=== PATIENT | female | born 1935 | race Caucasian/White ===

== ENCOUNTER 2017-12-14 14:07 | Emergency (ER) | payer MEDICARE, OTHER ==
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
--- NOTE | 2017-12-14 15:32 | RADIOLOGY REPORT (SQ) ---
EXAM DESCRIPTION: TIBIA FIBULA LEFT COMPLETED DATE/TIME: 12/14/2017 3:21 pm REASON FOR STUDY: fall, left leg injury COMPARISON: None. NUMBER OF VIEWS: Two views. TECHNIQUE: Two radiographic images acquired of the left tibia and fibula to include the knee and ank le in at least one projection. LIMITATIONS: None. FINDINGS: MINERALIZATION: Normal. BONES: No acute fracture or dislocation. No worrisome bone lesions. SOFT TISSUES: No obvious swelling or foreign body. OTHER: No other significant finding. IMPRESSION: NEGATIVE STUDY OF THE LEFT TIBIA AND FIBULA. NO RADIOGRAPHIC EVIDENCE OF ACUTE INJURY. TECHNICAL DOCUMENTATION: JOB ID: [id number] [employer]- All Rights Reserved Reading location - IP/workstation name: [email or web address]
[2017-12-14 15:54] LABS: APPEARANCE,URINE CLOUDY; BILIRUBIN,URINE NEGATIVE (NEGATIVE); GLUCOSE, URINE NEGATIVE (NEGATIVE); KETONES,URINE NEGATIVE (NEGATIVE); LEUKOCYTE ESTERASE,URINE NEGATIVE (NEGATIVE); NITRITE,URINE NEGATIVE (NEGATIVE); PROTEIN,URINE NEGATIVE (NEGATIVE); URINE SPECIFIC GRAVITY 1.027
[2017-12-14 15:55] LABS: COLOR,URINE YELLOW
[2017-12-14] MEDS ORDERED: CEPHALEXIN 500 MG CAPSULE PO ONE (15:55)
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
[2017-12-14 16:13] VITALS: BP 138/69
== END 2017-12-14 16:13 | disposition home or self-care (01) ==
LOC: ER 14:07
DX: L03.116 Cellulitis of left lower limb (principal); M79.662 Pain in left lower leg; E78.00 Pure hypercholesterolemia, unspecified; I10 Essential (primary) hypertension
CPT/HCPCS: 99283; 81001; 73590; A9270

== ENCOUNTER 2018-09-30 14:03 | Emergency (ER) | payer OTHER, MEDICARE ==
[2018-09-30 14:24] LABS: ABSOLUTE EOSINOPHILS # (AUTO) 0.1 10^3/uL (0.0-0.6); ABSOLUTE LYMPHOCYTES (AUTO) 1.5 10^3/uL (0.5-4.7); ABSOLUTE MONOCYTES (AUTO) 0.7 10^3/uL (0.1-1.4); ABSOLUTE NEUT (AUTO) 3.2 10^3/uL (1.7-8.2); BASOPHILS % (AUTO) 0.5 % (0-2); EOSINOPHILS % (AUTO) 1.6 % (0-6); HEMATOCRIT 39.1 % (36.0-47.0); HEMOGLOBIN 13.5 g/dL (12.0-15.5); MEAN CORPUSCULAR HEMOGLOBIN 29.5 pg (27.0-33.4); MEAN CORPUSCULAR HGB CONC 34.5 g/dL (32.0-36.0); MEAN CORPUSCULAR VOLUME 86 fl (80-97); MONOCYTES % (AUTO) 12.2 % (3-13); PLATELET COUNT 176 10^3/uL (150-450); RED BLOOD COUNT 4.57 10^6/uL (3.72-5.28); RED CELL DISTRIBUTION WIDTH 12.3 % (11.5-14.0); SEGMENTED NEUTROPHILS % (AUTO) 58.7 % (42-78); TOTAL CELLS COUNTED % (AUTO) 100 %; WHITE BLOOD COUNT 5.4 10^3/uL (4.0-10.5)
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
[2018-09-30 14:41] LABS: ALANINE AMINOTRANSFERASE 24 U/L (9-52); ALBUMIN 3.7 g/dL (3.5-5.0); ALKALINE PHOSPHATASE 48 U/L (38-126); ANION GAP 5 (5-19); ASPARTATE AMINO TRANSFERASE 30 U/L (14-36); BILIRUBIN,DIRECT 0.2 mg/dL (0.0-0.4); BILIRUBIN,TOTAL 0.4 mg/dL (0.2-1.3); BLOOD UREA NITROGEN 18 mg/dL (7-20); CALCIUM 9.4 mg/dL (8.4-10.2); CARBON DIOXIDE 31 mmol/L (22-30); CHLORIDE 104 mmol/L (98-107); GLUCOSE 136 mg/dL (75-110); POTASSIUM 4.1 mmol/L (3.6-5.0); SODIUM 140.4 mmol/L (137-145); TOTAL PROTEIN 6.1 g/dL (6.3-8.2)
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
[2018-09-30 15:57] LABS: CREATINE KINASE MB 2.06 ng/mL (<4.55)
[2018-09-30 16:00] LABS: TROPONIN I 0.022 ng/mL
[2018-09-30 16:30] VITALS: BP 138/98
--- NOTE | 2018-10-01 08:10 | EKG REPORT ---
SEVERITY:- ABNORMAL ECG - JUNCTIONAL ESCAPE RHYTHM ,COMPLETE HEART BLOCK RIGHT BUNDLE BRANCH BLOCK LVH WITH IVCD AND SECONDARY REPOL ABNRM : Confirmed by: Hussain Heredia MD 01-Oct-2018 08:09:33
== END 2018-09-30 15:40 | disposition short-term general hospital (02) ==
LOC: ER 14:03
DX: S20.219A Contusion of unspecified front wall of thorax, initial encounter (principal); R07.9 Chest pain, unspecified; R42 Dizziness and giddiness; M54.2 Cervicalgia; R00.1 Bradycardia, unspecified; R10.9 Unspecified abdominal pain; V42.5XXA Car driver injured in collision with two- or three-wheeled motor vehicle in traffic accident, initial encounter; E78.00 Pure hypercholesterolemia, unspecified; I10 Essential (primary) hypertension
CPT/HCPCS: 36415; 70450; 71045; 71260; 72125; 74177; 80053; 82550; 82553; 82962; 83690; 84484; 85025; 93005; 93010; 99291

== ENCOUNTER 2019-01-07 19:22 | Emergency (ER) | payer MEDICARE, OTHER ==
[2019-01-07] MEDS ORDERED: NORMAL SALINE 1000 ML 1,000 ML IV ONE (22:29)
[2019-01-07] MEDS ORDERED: MORPHINE SULFATE 10 MG/ML INJ IV ONE (22:29)
[2019-01-07] MEDS ORDERED: ONDANSETRON HCL INJ/PF 4 MG/2 ML SDV IV ONE (22:30)
--- NOTE | 2019-01-07 22:31 | ER Document Report ---
ED GI/ - General Chief Complaint: Abdominal Pain Stated Complaint: ABDOMINAL PAIN Time Seen by Provider: 01/07/19 22:21 Primary Care Provider: PALOMA APPLE MD [ACTIVE STAFF] - 01/14/19 Notes: Patient is an 83-year-old female that comes to the emergency department for chief complaint of lower abdominal pain. Pain started in the early afternoon, she states pain is sharp, intermittently very sharp, has made her nauseated but she has not vomited. She denies fever/chills. She had a bowel movement yesterday that was slightly harder than normal, she denies hematochezia. She denies any abdominal surgery history. She cannot recall a colonoscopy history either. Past medical history of AICD placement, she is on lisinopril, treated for hypothyroidism, denies any medical history otherwise. Daughter at bedside. TRAVEL OUTSIDE OF THE [place] IN LAST 30 DAYS: No - Related Data Allergies/Adverse Reactions: No Known Allergies Allergy (Verified 12/14/17 14:56) Past Medical History - General Information source: Patient, Relative - Social History Smoking Status: Never Smoker Frequency of alcohol use: None Lives with: Family Family History: None - Past Medical History Cardiac Medical History: Reports: Hx Hypercholesterolemia, Hx Hypertension Renal/ Medical History: Denies: Hx Peritoneal Dialysis - Immunizations Immunizations up to date: Yes Hx Diphtheria, Pertussis, Tetanus Vaccination: Yes Review of Systems - Review of Systems Constitutional: No symptoms reported EENT: No symptoms reported Cardiovascular: No symptoms reported Respiratory: No symptoms reported Gastrointestinal: See HPI Genitourinary: No symptoms reported Female Genitourinary: No symptoms reported Musculoskeletal: No symptoms reported Skin: No symptoms reported Hematologic/Lymphatic: No symptoms reported Neurological/Psychological: No symptoms reported Physical Exam - Vital signs Vitals: Temp Pulse Resp BP Pulse Ox 98.6 F 69 18 164/56 H 97 01/07/19 19:54 01/07/19 19:54 01/07/19 19:54 01/07/19 19:54 01/07/19 19:54 - Notes Notes: GENERAL: Alert, interacts well. No acute distress. HEAD: Normocephalic, atraumatic. EYES: Pupils equal, round, and reactive to light. Extraocular movements intact. ENT: Oral mucosa moist, tongue midline. Oropharynx unremarkable. Airway patent. NECK: Full range of motion. Supple. Trachea midline. LUNGS: Clear to auscultation bilaterally, no wheezes, rales, or rhonchi. No respiratory distress. HEART: Regular rate and rhythm. No murmur ABDOMEN: Bilateral lower abdominal tenderness, no guarding, no rigidity, no rebound tenderness. Non-distended. Bowel sounds present in all 4 quadrants. GENITOURINARY: Deferred EXTREMITIES: Moves all 4 extremities spontaneously. No edema, normal radial and dorsalis pedis pulses bilaterally. No cyanosis. BACK: no cervical, thoracic, lumbar midline tenderness. No saddle anesthesia, normal distal neurovascular exam. NEUROLOGICAL: Alert and oriented x3. Normal speech. . PSYCH: Normal affect, normal mood. SKIN: Warm, dry, normal turgor. No rashes or lesions noted. Course - Re-evaluation Re-evalutation: Patient with generalized lower abdominal tenderness on evaluation, no guarding or rebound tenderness. She is not ill-appearing. Vital signs unremarkable. C BC shows mild leukocytosis at 11,000, chemistry, urinalysis unremarkable. Because of patient's age and abdominal tenderness on exam CAT scan of the was performed, this shows area of possible mass versus abscess versus cyst in the pelvic area. Discussed with patient and daughter, ultrasound was performed, this shows what appears to be complex cystic mass of the left ovary at 11 cm in size. Good blood flow to the ovary is maintained as demonstrated on ultrasound. 01/08/19 04:[address] Apple, [employer] supervisor. She recommends Ca125, CA 199, and CEA testing now, follow-up approximately Saturday so there will be enough time for the test to complete, she can complete her imaging and additional management at that time. She should be provided with pain medication and return precau tions. I discussed this with patient, she states satisfaction and agreement with plan. - Vital Signs Vital signs: Temp Pulse Resp BP Pulse Ox 98.4 F 68 19 159/58 H 100 01/08/19 05:53 01/08/19 05:53 01/08/19 05:53 01/08/19 05:53 01/08/19 05:53 - Laboratory Result Diagrams: 01/07/19 23:08 01/07/19 23:08 Laboratory results interpreted by me: 01/07/19 01/07/19 01/07/19 23:08 23:08 23:08 WBC 11.6 H Plt Count 131 L Seg Neutrophils % 89.1 H Lymphocytes % 5.3 L Absolute Neutrophils 10.3 H BUN 21 H Glucose 132 H Urine Ketones TRACE H Discharge - Discharge Clinical Impression: Lower abdominal pain, Ovarian mass, left Condition: Stable Disposition: HOME, SELF-CARE Additional Instructions: You have an 11 cm cystic mass on the left ovary according to the imaging. This is most likely the cause of your symptoms. I spoke with Dr. Apple, [employer] [facility] about your testing/work-up. Take the pain medication as prescribed if needed, if you do take this pain medication also take the Colace stool softener to avoid constipation. The blood tests we are running now take some time to result, because of this the follow-up recommendation by Dr. Apple is to be seen in the office approximately on Saturday, call tomorrow to set up this appointment. Return if you worsen including severe pain, fever, vomiting, or any other concerning or worsening symptoms. Prescriptions: Docusate Sodium [Colace 100 mg Capsule] 100 mg PO ASDIR PRN #30 capsule PRN Reason: Hydrocodone/Acetaminophen [Gustine 5-325 mg Tablet] 0.5 - 1 tab PO ASDIR #15 tablet Referrals: PALOMA APPLE MD [ACTIVE STAFF] - 01/14/19
[2019-01-07 23:31] LABS: ABSOLUTE LYMPHOCYTES (AUTO) 0.6 10^3/uL (0.5-4.7); ABSOLUTE MONOCYTES (AUTO) 0.6 10^3/uL (0.1-1.4); ABSOLUTE NEUT (AUTO) 10.3 10^3/uL (1.7-8.2); BASOPHILS % (AUTO) 0.1 % (0-2); EOSINOPHILS % (AUTO) 0.1 % (0-6); HEMATOCRIT 40.6 % (36.0-47.0); HEMOGLOBIN 13.7 g/dL (12.0-15.5); LYMPHOCYTES % (AUTO) 5.3 % (13-45); MEAN CORPUSCULAR HEMOGLOBIN 28.5 pg (27.0-33.4); MEAN CORPUSCULAR HGB CONC 33.8 g/dL (32.0-36.0); MEAN CORPUSCULAR VOLUME 84 fl (80-97); MONOCYTES % (AUTO) 5.4 % (3-13); PLATELET COUNT 131 10^3/uL (150-450); RED BLOOD COUNT 4.82 10^6/uL (3.72-5.28); RED CELL DISTRIBUTION WIDTH 13.5 % (11.5-14.0); SEGMENTED NEUTROPHILS % (AUTO) 89.1 % (42-78); TOTAL CELLS COUNTED % (AUTO) 100 %; WHITE BLOOD COUNT 11.6 10^3/uL (4.0-10.5)
[2019-01-07 23:40] LABS: APPEARANCE,URINE SLIGHTLY-CLOUDY; BILIRUBIN,URINE NEGATIVE (NEGATIVE); COLOR,URINE YELLOW; GLUCOSE, URINE NEGATIVE (NEGATIVE); KETONES,URINE TRACE mg/dL (NEGATIVE); LEUKOCYTE ESTERASE,URINE NEGATIVE (NEGATIVE); NITRITE,URINE NEGATIVE (NEGATIVE); PROTEIN,URINE NEGATIVE (NEGATIVE); URINE SPECIFIC GRAVITY 1.023; UROBILINOGEN,URINE NEGATIVE mg/dL (<2.0)
[2019-01-07 23:50] LABS: ALANINE AMINOTRANSFERASE 32 U/L (9-52); ALBUMIN 3.8 g/dL (3.5-5.0); ALKALINE PHOSPHATASE 50 U/L (38-126); ANION GAP 8 (5-19); ASPARTATE AMINO TRANSFERASE 30 U/L (14-36); BILIRUBIN,DIRECT 0.3 mg/dL (0.0-0.4); BILIRUBIN,TOTAL 0.6 mg/dL (0.2-1.3); BLOOD UREA NITROGEN 21 mg/dL (7-20); CALCIUM 9.9 mg/dL (8.4-10.2); CARBON DIOXIDE 28 mmol/L (22-30); CHLORIDE 105 mmol/L (98-107); GLUCOSE 132 mg/dL (75-110); SODIUM 141.3 mmol/L (137-145); TOTAL PROTEIN 6.7 g/dL (6.3-8.2)
--- NOTE | 2019-01-08 01:52 | RADIOLOGY REPORT (SQ) ---
EXAM DESCRIPTION: CT ABDOMEN PELVIS WITH IV CONTRAST COMPLETED DATE/TME: 01/08/2019 00:18 CLINICAL HISTORY: 83 years, Female, lower abd pain, nausea, leukocytosis COMPARISON: None. TECHNIQUE: Axial CT images of the abdomen and pelvis were obtained after the administration of IV contrast. Sagittal and coronal reformats were performed. DLP 406 Images stored on PACS. All CT scanners at this facility use dose modulation, iterative reconstruction, and/or weight based dosing when appropriate to reduce radiation dose to as low as reasonably achievable (ALARA). [facility]: Dose Right [facility]: CareDose [facility]: Dose Right [facility]: Teradose 4D [facility]: [employer] LIMITATIONS: None. FINDINGS: The lung bases are clear. The liver, pancreas, spleen, and adrenal glands are unremarkable. There is a 1.9 cm stone near the gallbladder neck. Bilateral parapelvic cysts are noted. There is no evidence of hydronephrosis bilaterally. There is no intraperitoneal free air. There is no lymphadenopathy. There is a complex hypodense collection within the lower pelvis which measures 10.2 x 9.8 cm. No definite adjacent inflammatory changes including the rectum which abuts the collection. There is no lymphadenopathy. The abdominal aorta has atherosclerotic calcifications without evidence of an aneurysm. The stomach, small bowel, and appendix appear unremarkable. There is extensive diverticulosis without definite evidence of acute diverticulitis. The uterus is atrophic. The urinary bladder is unremarkable. The bones are unremarkable. IMPRESSION: Complex hypodense collection along the lower pelvis without definite surrounding inflammatory changes. This may represent a neoplasm arising from the ovaries or possibly a hematoma, seroma, or abscess. Further evaluation with a pelvic ultrasound or pelvic MRI with IV contrast is recommended. Cholelithiasis. Extensive diverticulosis without evidence of diverticulitis. TECHNICAL DOCUMENTATION: Quality ID # 436: Final reports with documentation of one or more dose reduction techniques (e.g., Automated exposure control, adjustment of the mA and/or kV according to patient size, use of iterative reconstruction technique) copyright 2011 [employer]- All Rights Reserved
--- NOTE | 2019-01-08 03:36 | RADIOLOGY REPORT (SQ) ---
EXAM DESCRIPTION: US TRANSVAGINAL COMPLETED DATE/TME: 01/08/2019 02:08 CLINICAL HISTORY: 83 years Female, eval pelvic abnormality Comparison: CT, concurrent Technique: Transvaginal. LIMITATIONS: None. FINDINGS: 9 x 11 x 6 cm complex cystic mass with vascularity of the left adnexa. 7 cm uterus, 0.6 cm thick endometrial stripe, small fluid in the endometrial cavity, 1.8 cm cervix, and nonvisualized right ovary. IMPRESSION: 1. 11 cm left adnexal mass. Differential diagnosis includes malignancy. Recommend contrast MRI of the pelvis and [employer]ECTIVE referral. 2. Right ovary is not visualized.
[2019-01-08 05:55] VITALS: BP 159/58
[2019-01-09 09:33] LABS: CANCER ANTIGEN (CA) 125 30.3 U/mL (0.0-38.1)
== END 2019-01-08 05:55 | disposition home or self-care (01) ==
LOC: ER 19:22
DX: N83.9 Noninflammatory disorder of ovary, fallopian tube and broad ligament, unspecified (principal); R10.30 Lower abdominal pain, unspecified; R10.813 Right lower quadrant abdominal tenderness; R10.814 Left lower quadrant abdominal tenderness; R11.0 Nausea; R19.4 Change in bowel habit; D72.829 Elevated white blood cell count, unspecified; E03.9 Hypothyroidism, unspecified; I10 Essential (primary) hypertension; Z79.899 Other long term (current) drug therapy; Z95.810 Presence of automatic (implantable) cardiac defibrillator
CPT/HCPCS: 99284; 96361; 96374; 96375; 36415; 86301; 86304; 82378; 83605; 85025; 80053; 81001; 76830; 93976; 74177; J2270; J2405; J7030